=== PATIENT | male | born 1995 | race African-American/Black ===

== ENCOUNTER 2022-05-26 02:22 | Emergency (ER) | payer MEDICAID ==
[~2022-05-26] VITALS: Ht 190.5 cm; Wt 141.5 kg
[2022-05-26 02:38] VITALS: BP 126/78
[2022-05-26] MEDS ORDERED: IBUPROFEN 600MG TABLET PO ONE (03:30)
[2022-05-26] MEDS ORDERED: VISCOUS LIDOCAINE 2% 15 ML UDC MM ONE (04:30)
[2022-05-26] MEDS ORDERED: BENZ1LOZ73 MT (04:46)
[2022-05-26] MEDS ORDERED: GUAI-453 MT (04:46)
== END 2022-05-26 04:58 | disposition home or self-care (01) ==
LOC: ER 02:22
DX: J06.9 Acute upper respiratory infection, unspecified (principal); R07.89 Other chest pain; R05.9 Cough, unspecified; Z20.822 Contact with and (suspected) exposure to COVID-19
CPT/HCPCS: 71045; 87426; 93005; 99285; C9803

== ENCOUNTER 2022-10-04 19:27 | Emergency (ER) | payer MEDICAID ==
[~2022-10-04] VITALS: Ht 190.5 cm; Wt 142.6 kg
[~2022-10-04 19:27] MED LIST: BENZ1LOZ73 MT; GUAI-453 MT
[2022-10-04 19:31] VITALS: BP 147/86
== END 2022-10-04 22:36 | disposition left against medical advice (07) ==
LOC: ER 19:27
DX: L29.9 Pruritus, unspecified (principal); Z53.21 Procedure and treatment not carried out due to patient leaving prior to being seen by health care provider
CPT/HCPCS: 99281